=== PATIENT | female | born 1955 | race Caucasian/White ===

== ENCOUNTER 2017-01-16 09:03 | Outpatient (CLI) | payer BC ==
[2011-04-17 10:10] VITALS: BMI 25.8
== END 2017-01-16 11:10 ==
LOC: D.MAMMO 09:03
DX: Z12.31 Encounter for screening mammogram for malignant neoplasm of breast (principal)

== ENCOUNTER → 2017-07-18 09:35 | Outpatient (CLI) | payer BC ==
[2011-04-17 10:10] VITALS: BMI 25.8
== END | disposition home or self-care (01) ==
LOC: D.US 09:35
DX: R22.1 Localized swelling, mass and lump, neck (principal)

== ENCOUNTER → 2017-07-30 08:56 | Outpatient (CLI) | payer BC ==
[2011-04-17 10:10] VITALS: BMI 25.8
== END | disposition home or self-care (01) ==
LOC: D.CT 08:56
DX: R22.1 Localized swelling, mass and lump, neck (principal)

== ENCOUNTER → 2017-08-11 12:28 | Outpatient (CLI) | payer BC ==
[2011-04-17 10:10] VITALS: BMI 25.8
== END | disposition home or self-care (01) ==
LOC: D.US 12:28
DX: E04.1 Nontoxic single thyroid nodule (principal)

== ENCOUNTER → 2018-07-30 16:38 | Outpatient (CLI) | payer BC ==
[2011-04-17 10:10] VITALS: BMI 25.8
== END | disposition home or self-care (01) ==
LOC: D.MAMMO 13:15
DX: Z12.31 Encounter for screening mammogram for malignant neoplasm of breast (principal)

== ENCOUNTER 2020-12-05 16:00 | Outpatient (CLI) | payer OTHER ==
[2011-04-17 10:10] VITALS: BMI 25.8
== END 2020-12-05 23:59 ==
LOC: D.MAMMO 16:00
PROVIDERS: ATTEND Family Medicine
DX: Z12.31 Encounter for screening mammogram for malignant neoplasm of breast (principal)